=== PATIENT | male | born 1955 | race Caucasian/White ===

== ENCOUNTER 2020-12-16 13:20 | Emergency (ER) | payer MEDICARE, OTHER ==
[2020-12-16] MEDS ORDERED: Acetaminophen/HYDROcodone 325-10 MG Tab PO ONE (13:55)
[2020-12-16 14:33] LABS: CHLORIDE,CL 93 mmol/L (98-107); SODIUM,NA 131 mmol/L (136-145)
[2020-12-16 14:40] LABS: ANION GAP 16.2 mmol/L (5-15)
--- NOTE | 2020-12-16 14:41 | EDM.PDOC ---
ED HPI GENERAL MEDICAL PROBLEM - General Chief Complaint: Upper Extremity Injury/Pain Stated Complaint: HAND PAIN Time Seen by Provider: 12/16/20 13:26 Source of Information: Reports: Patient History Limitations: Reports: No Limitations - History of Present Illness INITIAL COMMENTS - FREE TEXT/NARRATIVE: Pt. presents to ER with complaint of swelling to the L hand. Pt. states that he woke with this this AM. Initially he stated that he is not sure what caused this problem, but later related that he slipped on the ice and thinks he injured it on Thursday. No known history of gout. He states that he does have a history of "arthritis". Denies arthralgias in his other joints. Denies recent travel. Pt. denies any fever or chills. He states that the discomfort is worse when he a ttempts to straighten out his fingers. No numbness/tingling in distal portion of the extremities. Pt. lives in [place], [place], which [place] of [place]. He states that he is passing through [place] on the way home from fishing. According to his online medical record, he was prescribed 120 tabs of Fork 5/325mg and 30 tabs Fork 5/325mg on 11/14. Pt. omitted this from his med list, but states that he "slipped on the ice" several weeks ago and broke several ribs. He indicates that his PCP is Dr. Hyatt in [place], [place]. Onset Date: 12/16/20 Quality: Reports: Throbbing Severity: Severe Improves with: Reports: Rest Worsens with: Reports: Movement Left Hand Pain Score (Numeric/FACES): 8 - Related Data Allergies Allergy/AdvReac Type Severity Reaction Status Date / Time No Known Allergies Allergy Verified 12/16/20 13:21 Home Meds: Home Meds ALPRAZolam [Xanax XR] 1 mg PO BEDTIME 12/16/20 [History] Cyclobenzaprine [Flexeril] 10 mg PO TID PRN 12/16/20 [History] Escitalopram Oxalate [Lexapro] 10 mg PO DAILY 12/16/20 [History] Fludrocortisone [Florinef] 0.1 mg PO DAILY 12/16/20 [History] Hydrocortisone [Cortef] 10 mg PO DAILY 12/16/20 [History] Metoprolol Succinate [Toprol XL 50mg] 50 mg PO DAILY 12/16/20 [History] Rosuvastatin Calcium 20 mg PO DAILY 12/16/20 [History] lisinopriL [Lisinopril] 20 mg PO DAILY 12/16/20 [History] Past Medical History Musculoskeletal History: Reports: Arthritis Endocrine/Metabolic History: Reports: Other (See Below) Other Endocrine/Metabolic History: adrenalectomy - Past Surgical History Musculoskeletal Surgical History: Reports: Arthroscopic Knee, Hip Replacement Social & Family History - Tobacco Use Tobacco Use Status *Q: Never Tobacco User Review of Systems - Review of Systems Review Of Systems: Comprehensive ROS is negative, except as noted in HPI. ED EXAM, GENERAL - Physical Exam Exam: See Below Exam Limited By: No Limitations General Appearance: Alert, WD/WN, No Apparent Distress ED TRAUMA EXTREMITY PROCEDURES - Splinting Left Upper Extremity Splint Site: posterior hand Splint Material: Fiberglass Splint Design: Posterior Applied & Form Fitted By: Provider, Nurse Provider Post-Splint Application NV Check: NV Status Normal, Good Position Complications: No Course - Vital Signs Last Recorded V/S: Last Vital Signs Temp 36.6 C 12/16/20 13:26 Pulse 95 12/16/20 13:26 Resp 16 12/16/20 13:26 BP 172/88 H 12/16/20 13:26 Pulse Ox 96 12/16/20 13:26 - Orders/Labs/Meds Labs: Laboratory Tests 12/16/20 12/16/20 Range/Units 14:05 14:05 WBC 11.1 H (4.0-10.0) x10^3/uL RBC 5.42 (4.5-6.0) x10^6/uL Hgb 13.7 L (14.0-18.0) g/dL Hct 42.6 (40.0-52.0) % MCV 78.6 (78.0-93.0) fL MCH 25.3 L (26.0-32.0) pg MCHC 32.2 (32.0-36.0) g/dL RDW Coeff of Georgette 16.3 H (10.0-15.0) % Plt Count 214 (130-400) x10^3/uL Neut % (Auto) 82.9 H (50.0-80.0) % Lymph % (Auto) 6.9 L (25.0-50.0) % [place]ette % (Auto) 9.7 (2.0-11.0) % Eos % (Auto) 0.2 (0.0-4.0) % Baso % (Auto) 0.3 (0.2-1.2) % Sodium 131 L (136-145) mmol/L Potassium 3.2 L (3.5-5.1) mmol/L Chloride 93 L (98-107) mmol/L Carbon Dioxide 25 (21-32) mmol/L Anion Gap 16.2 H (5-15) mmol/L BUN 11 (7-18) mg/dL Creatinine 1.0 (0.70-1.30) mg/dL Est Cr Clr Drug Dosing 65.57 mL/min Estimated GFR (MDRD) > 60 Glucose 124 H (74-106) mg/dL Uric Acid 4.6 (3.5-7.2) mg/dL Calcium 8.5 (8.5-10.1) mg/dL Corrected Calcium 9.06 (8.5-10.1) mg/dL Total Bilirubin 0.6 (0.2-1.0) mg/dL AST 15 (15-37) U/L ALT 20 (16-63) U/L Alkaline Phosphatase 119 H (46-116) U/L C-Reactive Protein 3.1 H (<=0.9) mg/dL Total Protein 7.0 (6.4-8.2) g/dL Albumin 3.3 L (3.4-5.0) g/dL Globulin 3.7 Albumin/Globulin Ratio 0.89 Meds: Medications Discontinued Medications Generic Name Dose Route Start Last Admin Trade Name Freq PRN Reason Stop Dose Admin Hydrocodone Bitart/Acetaminophen 1 tab 12/16/20 13:55 12/16/20 13:58 Fork 325-10 Mg PO 12/16/20 13:56 1 tab ONETIME ONE Administration Departure - Departure Time of Disposition: 15:36 Disposition: Home, Self-Care 01 Clinical Impression: Fracture of metacarpal bone - Discharge Information Instructions: Metacarpal Fracture, [id number] Referrals: PCP,Not In Area [Primary Care Provider] - Forms: ED Department Discharge Additional Instructions: I spoke with Dr. Shah at [facility]. Keep splint on. Follow-up with your PCP in a week for repeat radiographs. Ibuprofen as needed for discomfort You can take your norco when you are not driving Sepsis Event Note (ED) - Evaluation Sepsis Screening Result: No Definite Risk - Focused Exam Vital Signs: Vital Signs Temp Pulse Resp BP Pulse Ox 12/16/20 13:26 36.6 C 95 16 172/88 H 96 - Problem List Review Problem List Initiated/Reviewed/Updated: Yes - Assessment/Plan Plan: Radiologist favors a 2nd metacarpal base fx. This was reviewed by Dr. Shah, [facility]. Dr. Shah does not favor an obvious fracture. He advised placing the patient in a posterior hand splint and following up with PCP for repeat radiographs in a week. He can use ibuprofen or his norco as needed for pain. Keep splint on. Ice hand and keep hand elevated above heart as much as possible.
--- NOTE | 2020-12-16 14:48 | CR ---
[id number] RAD/RAD Hand Left 3V EXAM: 3 VIEWS LEFT HAND. INDICATION: LEFT HAND PAIN/SWELLING, UNKNOWN MECHANISM OF INJURY. COMPARISON: None. DISCUSSION: Age indeterminate displaced fracture involving the base of the 2nd metacarpal medially. . There is associated soft tissue edema. Advanced degenerative changes of the 1st carpometacarpal joint. Mild to moderate degenerative changes seen throughout the remainder of the left hand and wrist. IMPRESSION: 1. Age-indeterminate displaced fracture involving the base of the 2nd metacarpal medially. Moe Su DO 12/16/20 [id number] Thank you for allowing us to participate in the care of your patient.
== END 2020-12-16 15:35 | disposition home or self-care (01) ==
LOC: VM.ED 13:20
DX: S62.311A Displaced fracture of base of second metacarpal bone, left hand, initial encounter for closed fracture (principal); W00.0XXA Fall on same level due to ice and snow, initial encounter
CPT/HCPCS: 29125; 36415; 73130-LT; 80053; 84550; 85025; 86140; 99283; 99283-25; A9270-GY